=== PATIENT | female | born 1990 | race Caucasian/White ===

== ENCOUNTER → 2016-09-15 | Outpatient (CLI) | payer BC ==
--- NOTE | 2016-09-15 11:01 | Diagnostic Imaging Report ---
INDICATION: Followup size and dates. COMPARISON: None. DISCUSSION: Transabdominal sonographic evaluation of the gravid uterus was performed. Single live intrauterine at 35 weeks 6 days by today's sonographic measurements. Estimated gestational age by the report from an outside ultrasound which is not available for review was given at 32 weeks 5 days. Recommend clinical correlation for above date discrepancy. EDC by today's ultrasound is 10/14/2016. EDC by the outside report of 11/05/2016. presentation is cephalic. Normal amniotic fluid index measuring 7.9 cm. Grade 2 placenta is located anteriorly with no placenta previa. heart rate measures 135 beats per minute. Biparietal diameter measures 9.0 cm. Head circumference measures 33.4 cm. Abdominal circumference measures 29.8 cm. Femur length measures 6.7 cm. No abnormal adnexal mass or fluid. Estimated weight is 2501 grams. IMPRESSION: 1. Single live intrauterine at 35 weeks 6 days by today's sonographic measurements. Expected gestational age by the first reported outside ultrasound is 32 weeks 5 days. Recommend clinical correlation. Dictated by: Dictated on workstation # [id number]
== END ==
LOC: RAD 09:52
PROVIDERS: ATTEND Obstetrics & Gynecology
DX: O26.843 Uterine size-date discrepancy, third trimester (principal); Z3A.35 35 weeks gestation of pregnancy
CPT/HCPCS: 76805

== ENCOUNTER → 2016-10-18 | Outpatient (CLI) | payer BC ==
--- NOTE | 2016-10-18 14:21 | Diagnostic Imaging Report ---
INDICATION: Uterine size-date discrepancy. TECHNIQUE: Multiple real-time grayscale images were obtained over the gravid uterus. COMPARISON: 09/15/2016. FINDINGS: Single live intrauterine at 39 weeks 2 days by today's sonographic measurements. Expected gestational age by first ultrasound is 37 weeks 3 days with a 2 week date discrepancy. Normal amniotic fluid index. Grade 2 placenta is located anteriorly with no placenta previa. heart rate measures 138 beats per minute. No acute abnormality identified. Biometrical measurements are as follows: Biparietal 9.9 cm, age 40 weeks 6 days. Head circumference 36.2 cm, age out of range weeks out of range days. Abdominal circumference 36.7 cm, age 40 weeks 5 days. Femur length 7.0 cm, age 36 weeks 0 days. Sonographic estimate age: 39 weeks 2 days. Sonographic estimated date of delivery: 10/23/16. Estimated Weight: 3936 gm (+/- 575 gm). LMP percentile: 98%. heart rate: 138 beats per minute. number: 1 of 1. IMPRESSION: Single live intrauterine at 39 weeks 2 days by today's sonographic measurements. Gestational age by the first ultrasound is 37 weeks 3 days. Dictated by: Dictated on workstation # [id number]
== END ==
LOC: RAD 12:59
PROVIDERS: ATTEND Obstetrics & Gynecology
DX: O26.843 Uterine size-date discrepancy, third trimester (principal); Z3A.39 39 weeks gestation of pregnancy
CPT/HCPCS: 76816

== ENCOUNTER 2016-10-25 15:43 | Inpatient (IN) | payer BC ==
[~2016-10-25] VITALS: Ht 160 cm; Wt 91.6 kg
[2016-10-25] VITALS (11 sets, daily range): BP systolic 104–134; BP diastolic 58–92
[2016-10-25] MEDS ORDERED: NS IV 1000 ML 1,000 ML ONE (16:43)
[2016-10-25] MEDS: NS IV 1000 ML 1,000 ML IV SCH (16:48)
[2016-10-25] MEDS ORDERED: PREN-53 PO (16:53)
[2016-10-25] MEDS ORDERED: ceFAZolin 2 GM/50 ML NS 50 ML IV SCH (17:08)
[2016-10-25] MEDS ORDERED: MISOPROSTOL 100 MCG (CYTOTEC) TAB ONE (17:11)
[2016-10-25] MEDS ORDERED: MINERAL OIL CONCENTRATE 99.9% 15 ML UDC TOP PRN (17:15)
[2016-10-25] MEDS: MISOPROSTOL 100 MCG (CYTOTEC) TAB PV SCH ×2 (17:17→21:06)
[2016-10-25 17:20] LABS: BASOPHILS % (AUTO) 0 % (0-10); EOSINOPHILS # (AUTO) 0.1 10^3/uL (0.0-0.3); EOSINOPHILS % (AUTO) 1 % (0-10); LYMPHOCYTES # (AUTO) 1.8 X 10^3 (1.0-4.0); LYMPHOCYTES % (AUTO) 20 % (12-44); MEAN CORPUSCULAR HEMOGLOBIN 26 PG (25-34); MEAN CORPUSCULAR HGB CONC 31 G/DL (32-36); MEAN CORPUSCULAR VOLUME 81 FL (80-99); MEAN PLATELET VOLUME 11.1 FL (7.4-10.4); MONOCYTES % (AUTO) 11 % (0-12); NEUTROPHILS # (AUTO) 5.9 X 10^3 (1.8-7.8); NEUTROPHILS % (AUTO) 68 % (42-75); PLATELET COUNT 257 10^3/uL (130-400); RED BLOOD COUNT 3.96 10^6/uL (4.35-5.85); RED CELL DISTRIBUTION WIDTH 15.1 % (10.0-14.5); WHITE BLOOD COUNT 8.7 10^3/uL (4.3-11.0)
[2016-10-25 17:29] LABS: ALANINE AMINOTRANSFERASE 18 U/L (0-55); ALBUMIN 3.2 G/DL (3.2-4.5); ANION GAP 9 MMOL/L (5-14); ASPARTATE AMINO TRANSFERASE 22 U/L (5-34); BILIRUBIN,TOTAL 0.3 MG/DL (0.1-1.0); BLOOD UREA NITROGEN 8 MG/DL (7-18); BUN/CREATININE RATIO 13; CALCIUM 8.8 MG/DL (8.5-10.1); CARBON DIOXIDE 21 MMOL/L (21-32); CHLORIDE 108 MMOL/L (98-107); CREATININE SERUM 0.61 MG/DL (0.60-1.30); GFR ESTIMATED > 60; GLUCOSE 92 MG/DL (70-105); POTASSIUM 3.8 MMOL/L (3.6-5.0); SODIUM 138 MMOL/L (135-145); URIC ACID 4.1 MG/DL (2.6-7.2)
[2016-10-25 17:47] LABS: LACTATE DEHYDROGENASE 221 U/L (125-220)
--- NOTE | 2016-10-25 18:26 | History & Physical-OB ---
OB - Chief Complaint & HPI Date Date of Admission: Date of Admission: Oct 25, 2016 at 15:43 Chief Complaint/History OB-Reason for Admission/Chief: Induction of Labor Hx : 1 Hx Para: 0 Gestational Age in Weeks: 38 Gestational Age in Days: 3 Indication for induction: medical complication (gest HTN) Other reason for admission: 26 y/o G1 @ 38w3d here for IOL for gest HTN relatively uncomplicated - had possible exposure to zika (negative testing), LGA baby (4kg at 37w3d) - negative GDM screening BP in office 142 systolic today, and diastolic BP 92 here upon arrival (> 4 hours apart) Has had h/a (not currently) and rapid increase in swelling Otherwise, fetus active, no LOF VB CTX. History of Labs O+ Antibody neg RI RPR NR Hep B neg Hep C neg HIV neg GC/CT neg/neg GBS+ Allergies and Home Medications Allergies Coded Allergies: morphine (Verified Allergy, Mild, HIVES, 10/25/16) Penicillins (Verified Allergy, Unknown, 10/25/16) Happened as a child Home Medications Qif254/Iron Fumarate/FA/Dss 1 Each Tablet, 1 EACH PO DAILY, (Reported) OB - History Hx of Present Care: Yes Ultrasounds: Abnormal US findings (LGA confirmed with serial GS) Obstetrical Complications: None, Other Information Induced Hypertension: Yes (gest HTN) Maternal Gestational Diabetes: No Hemorrhage: No Obstetrical History Hx : 1 Patient Past Medical History see above Social History/Family History HIV/AIDS: No Recent Infectious Disease Expo: No Sexually Transmitted Disease: No Alcohol Use: Denies Use Recreational Drug Use: No Smoking Cessation: Never smoker Immunizations Hepatitis A: No Hepatitis B: No Tetanus Booster (TDap): Less than 5yrs Rubella: immune RPR/VDRL: Negative GBS Status: Positive HBsAG: Negative OB - Admission Exam Physical Exam Time Seen by Provider: 18:00 Vitals: per groover and striper operator HEENT: NCAT Heart: Rhythm Normal Abdomen: Gravid Extremities: Edema (2+ pitting edema bilat) Reflexes: Normal Cervical Dilatation: 1cm Effacement: 50% Station: Ballotable Membranes: Intact Heart Rate: 140's Accelerations: Accelerations Present Decelerations: No Decelerations Short Term Variability: Present Box Order Person Variability: Average (6-25) Contractions on Admission: < 5 Minutes Apart Quiñones Scoring Tool (Modified) Effacement (%): 31-51% (1) Descent/Station: -3 (0) Cervix Consistency: Soft (2) Cervix Position: Middle/Mid-Position (1) Subtract 1 point for: Nulliparity (-1) Quiñones Score: 3 Labs Laboratory Tests Test 10/25/16 16:30 Range/Units White Blood Count 8.7 4.3-11.0 10^3/uL Red Blood Count 3.96 L 4.35-5.85 10^6/uL Hemoglobin 10.1 L 11.5-16.0 G/DL Hematocrit 32 L 35-52 % Mean Corpuscular Volume 81 80-99 FL Mean Corpuscular Hemoglobin 26 25-34 PG Mean Corpuscular Hemoglobin Concent 31 L 32-36 G/DL Red Cell Distribution Width 15.1 H 10.0-14.5 % Platelet Count 257 130-400 10^3/uL Mean Platelet Volume 11.1 H 7.4-10.4 FL Neutrophils (%) (Auto) 68 42-75 % Lymphocytes (%) (Auto) 20 12-44 % Monocytes (%) (Auto) 11 0-12 % Eosinophils (%) (Auto) 1 0-10 % Basophils (%) (Auto) 0 0-10 % Neutrophils # (Auto) 5.9 1.8-7.8 X 10^3 Lymphocytes # (Auto) 1.8 1.0-4.0 X 10^3 Monocytes # (Auto) 1.0 0.0-1.0 X 10^3 Eosinophils # (Auto) 0.1 0.0-0.3 10^3/uL Basophils # (Auto) 0.0 0.0-0.1 10^3/uL Sodium Level 138 135-145 MMOL/L Potassium Level 3.8 3.6-5.0 MMOL/L Chloride Level 108 H 98-107 MMOL/L Carbon Dioxide Level 21 21-32 MMOL/L Anion Gap 9 5-14 MMOL/L Blood Urea Nitrogen 8 7-18 MG/DL Creatinine 0.61 0.60-1.30 MG/DL Estimat Glomerular Filtration Rate > 60 BUN/Creatinine Ratio 13 Glucose Level 92 70-105 MG/DL Uric Acid 4.1 2.6-7.2 MG/DL Calcium Level 8.8 8.5-10.1 MG/DL Total Bilirubin 0.3 0.1-1.0 MG/DL Aspartate Amino Transf (AST/SGOT) 22 5-34 U/L Alanine Aminotransferase (ALT/SGPT) 18 0-55 U/L Alkaline Phosphatase 202 H 40-136 U/L Lactate Dehydrogenase 221 H 125-220 U/L Total Protein 6.0 L 6.4-8.2 G/DL Albumin 3.2 3.2-4.5 G/DL OB - Assessment/Plan/Diagnosis Plan Other Plan 26 y/o G1 @ 38w3d with gestational HTN, GBS+ IOL - cervical ripening with cytotec, SLIV Ancef for GBS ppx HELLP labs with no evidence of severe disease, negative proteinuria. No indication for mag sulfate at this time but will monitor for si/sx severe disease. JEROD MELARA MD Oct 25, 2016 18:26
[2016-10-25] MEDS ORDERED: CATHETER FLUSH 10 ML SYR IV SCH (22:00)
[2016-10-25] MEDS: ceFAZolin INJECTION 1,000 MG in NS (IVPB) 50 ML IV SCH (22:42)
[2016-10-26] VITALS (66 sets, daily range): BP systolic 105–142; BP diastolic 53–88
[2016-10-26] MEDS: MISOPROSTOL 100 MCG (CYTOTEC) TAB PV SCH (00:50)
[2016-10-26] MEDS: ceFAZolin INJECTION 1,000 MG in NS (IVPB) 50 ML IV SCH ×4 (02:20→15:05)
[2016-10-26] MEDS ORDERED: OXYTOCIN/NORMAL SALINE 500 ML IV ONE (05:22)
[2016-10-26] MEDS ORDERED: OXYTOCIN/NORMAL SALINE 500 ML IV SCH (05:42)
--- NOTE | 2016-10-26 08:24 | Progress Note-Standard ---
Standard Progress Note Progress Notes/Assess & Plan Date Seen 10/26/16 Time Seen by Provider: 07:45 Assess & Plan/Chief Complaint Labor Update Note - HD#2, 38w4d Denies complaints, some bloody show overnight, received 3 total doses cytotec, now on pit No severe pre-e symptoms Vital Sign - Last 12Hours 10/25/16 10/25/16 10/25/16 10/25/16 20:41 21:10 21:41 22:10 Temp 98.3 Pulse 88 90 88 73 Resp 18 18 18 18 B/P (MAP) 129/80 126/83 125/82 104/59 10/25/16 10/25/16 10/26/16 10/26/16 22:40 23:10 00:50 01:22 Pulse 88 84 70 80 Resp 18 18 18 18 B/P (MAP) 124/71 121/77 123/83 117/71 10/26/16 10/26/16 10/26/16 10/26/16 01:55 02:23 02:53 03:23 Temp 97.4 Pulse 75 77 93 88 Resp 18 18 18 18 B/P (MAP) 109/60 127/83 128/86 115/78 10/26/16 10/26/16 10/26/16 10/26/16 04:23 04:53 05:24 05:50 Temp 97.2 Pulse 86 92 82 90 Resp 18 18 18 18 B/P (MAP) 121/80 124/83 135/78 130/77 10/26/16 10/26/16 10/26/16 10/26/16 06:05 06:20 06:36 06:50 Pulse 85 75 77 75 Resp 18 18 18 18 B/P (MAP) 126/78 123/81 123/88 126/83 10/26/16 10/26/16 10/26/16 07:05 07:20 07:35 Temp 98.1 Pulse 69 72 68 Resp 18 18 18 B/P (MAP) 124/76 125/78 121/83 Intake and Output 10/26/16 00:00 Intake Total 300 ml Balance 300 ml SVE /-2, AROM with clear fluid FHT 125/mod chato/reactive no decels CTX 07/29 A/P: 26 y/o G1 @ 38w4d with IOL for gest HTN LGA fetus GBS+ S/p cytotec x 3 doses, continue pitocin, AROM with clear fluid Have discussed risks of shoulder dystocia at length given LGA fetus ASVD Ancef for gbs ppx Labs Laboratory Tests 10/25/16 16:30 JEROD MELARA MD Oct 26, 2016 08:24
[2016-10-26] MEDS ORDERED: LACTATED RINGERS 1,000 ML IV ONE ×2 (08:43→10:28)
[2016-10-26] MEDS ORDERED: SUFENTA 0.6MCG/ML BUPIVA 0.125 100 ML ONE (08:43)
[2016-10-26] MEDS ORDERED: fentaNYL INJECTION 100 MCG/2 ML AMP ONE ×2 (09:51→17:09)
[2016-10-26] MEDS ORDERED: ONDANSETRON 4 MG/2 ML (SDV) Z0FRAN ONE (10:21)
[2016-10-26] MEDS ORDERED: diphenhydrAMINE 50 MG/ML INJ (BENADRYL) IV PRN (10:30)
[2016-10-26] MEDS ORDERED: METOCLOPRAMIDE INJ 10 MG/2 ML (REGLAN) IV PRN (10:30)
[2016-10-26] MEDS ORDERED: ONDANSETRON 4 MG/2 ML (SDV) Z0FRAN IV PRN (10:30)
[2016-10-26] MEDS ORDERED: NALOXONE 0.4 MG/ML 1 ML (NARCAN) VIAL IV PRN ×2 (10:30)
[2016-10-26] MEDS ORDERED: EPIDURAL (SUFENTA 0.6MCG/ML BUPIVA 0.125%) 100 ML BAG EPI PRN (10:30)
[2016-10-26] MEDS: NS IV 1000 ML 1,000 ML IV SCH (13:20)
[2016-10-26] MEDS ORDERED: LACTATED RINGERS 1,000 ML IV PRN ×2 (16:48)
--- NOTE | 2016-10-26 16:54 | Progress Note-Standard ---
Standard Progress Note Progress Notes/Assess & Plan Date Seen 10/26/16 Time Seen by Provider: 16:40 Assess & Plan/Chief Complaint Labor Update Note - HD#2, 38w4d Denies complaints, comfortable with epidural VS - Last 72 Hours, by Label 10/25/16 10/25/16 10/25/16 10/25/16 15:58 16:50 18:40 19:10 Temp 98.9 Pulse 103 98 85 93 Resp 18 18 18 18 B/P (MAP) 134/92 131/79 111/64 119/58 10/25/16 10/25/16 10/25/16 10/25/16 20:10 20:41 21:10 21:41 Temp 98.3 Pulse 90 88 90 88 Resp 18 18 18 18 B/P (MAP) 125/81 129/80 126/83 125/82 10/25/16 10/25/16 10/25/16 10/26/16 22:10 22:40 23:10 00:50 Pulse 73 88 84 70 Resp 18 18 18 18 B/P (MAP) 104/59 124/71 121/77 123/83 10/26/16 10/26/16 10/26/16 10/26/16 01:22 01:55 02:23 02:53 Temp 97.4 Pulse 80 75 77 93 Resp 18 18 18 18 B/P (MAP) 117/71 109/60 127/83 128/86 10/26/16 10/26/16 10/26/16 10/26/16 03:23 04:23 04:53 05:24 Temp 97.2 Pulse 88 86 92 82 Resp 18 18 18 18 B/P (MAP) 115/78 121/80 124/83 135/78 10/26/16 10/26/16 10/26/16 10/26/16 05:50 06:05 06:20 06:36 Pulse 90 85 75 77 Resp 18 18 18 18 B/P (MAP) 130/77 126/78 123/81 123/88 10/26/16 10/26/16 10/26/16 10/26/16 06:50 07:05 07:20 07:35 Temp 98.1 Pulse 75 69 72 68 Resp 18 18 18 18 B/P (MAP) 126/83 124/76 125/78 121/83 6/7/17 6/7/17 6/7/17 6/7/17 07:50 08:05 08:20 08:35 Pulse 82 68 76 73 Resp 18 18 18 18 B/P (MAP) 139/82 130/78 124/78 127/83 6/7/17 6/7/17 6/7/17 6/7/17 08:50 09:05 09:20 09:35 Pulse 78 75 74 74 Resp 18 18 18 18 B/P (MAP) 138/86 133/86 141/84 137/84 6/7/17 6/7/17 6/7/17 6/7/17 09:50 10:00 10:05 10:10 Pulse 82 81 96 93 Resp 18 18 18 18 B/P (MAP) 142/82 141/82 135/81 128/79 Pulse Ox 100 100 100 6/7/17 6/7/17 6/7/17 6/7/17 10:15 10:20 10:25 10:30 Temp 98.6 Pulse 91 102 64 64 Resp 18 18 18 18 B/P (MAP) 128/80 128/78 105/53 105/53 Pulse Ox 100 100 100 100 6/7/17 6/7/17 6/7/17 6/7/17 10:31 10:35 10:40 10:45 Pulse 76 89 86 92 Resp 18 18 18 18 B/P (MAP) 106/57 128/73 121/74 128/79 Pulse Ox 100 100 100 100 6/7/17 6/7/17 6/7/17 6/7/17 11:00 11:15 11:30 11:45 Pulse 85 83 86 80 Resp 18 18 18 18 B/P (MAP) 131/74 126/79 130/84 129/75 Pulse Ox 100 100 100 100 6/7/17 6/7/17 6/7/17 6/7/17 12:00 12:15 12:30 12:45 Pulse 95 86 95 97 Resp 18 18 18 18 B/P (MAP) 124/75 119/78 124/75 127/79 Pulse Ox 100 100 100 100 6/7/17 6/7/17 6/7/17 6/7/17 13:00 13:15 13:30 13:45 Pulse 90 88 88 91 Resp 18 18 18 18 B/P (MAP) 120/76 124/71 118/72 119/76 Pulse Ox 100 100 100 100 10/26/16 10/26/16 10/26/16 10/26/16 14:00 14:15 14:30 14:45 Pulse 82 105 105 95 Resp 18 18 18 18 B/P (MAP) 129/76 129/82 129/82 127/72 Pulse Ox 100 100 100 100 10/26/16 15:00 Pulse 102 Resp 18 B/P (MAP) 127/77 Pulse Ox 100 SVE /-2 FHT 125/mod chato/reactive no decels CTX 07/29 A/P: 26 y/o G1 @ 38w4d with IOL for gest HTN LGA fetus GBS+ Arrest of descent, suspected CPD S/p cytotec x 3 doses, pitocin. No descent since AROM. Cervix with minimal change from 3-4cm from 0700 to now (10 hours). I suspect CPD. I discussed with Ada and her family that I recommend delivery at this point, and she is agreeable. We discussed risks including bleeding, infection, damage to surrounding structures of mother and infant. She is in agreement. Marcia-op ancef and azithromycin. To OR for CD. Labs Laboratory Tests 10/25/16 16:30 JEROD MELARA MD Oct 26, 2016 16:54
--- NOTE | 2016-10-26 16:58 | Cesarean Section Operative ---
Procedure Procedure Note Date of Procedure: 10/26/16 Pre-operative Diagnosis: Ada Reid is a 26 y/o G1 @ 38w4d with IOL for gestational hypertension, arrest of labor and descent, suspected cephalopelvic disproportion, GBS+ Post-operative Diagnosis: Same Procedure: Primary low transverse section Physician: Saavnah Ayala MD Plastics Fabricator: Debbie Bustos APRN who was vital to the case for retraction of essential neurovascular structures Estimated blood loss: 600 mL Specimens: Cord blood to lab, placenta to pathology Disposition: Stable to recovery Findings: Viable male infant, Apgars 8/9, weight 4jw50py, intact placenta, 3vc, normal appearing uterus, tubes, and ovaries. Indications: Ada Reid is a 26 y/o G1 @ 38w4d with IOL for gestational HTN. She was admitted and HELLP labs were obtained and normal. She had three doses of cytotec per vagina for cervical ripening. She then received pitocin for augmentation and had AROM of clear fluid. She received ancef for GBS prophylaxis. An epidural was placed for analgesia. She made minimal progress, from 3 to 4 cm throughout ten hours. More concerning was lack of descent of the presenting part. She was counseled on need for abdominal delivery and consented to this. Marcia-operative ancef and azithromycin were administered. Procedure Details: The patient was seen in pre-op and the procedure was discussed with the patient in full, including the risks, benefits, and alternatives. All questions were answered. The patient was taken to the operating room and a time out was performed, verifying patient and procedure. After spinal anesthesia was placed by our anesthesia colleagues, the patient was placed in the dorsal supine with leftward tilt for uterine displacement. Her abdomen was then prepped and draped in the typical sterile fashion. A Pfannenstiel skin incision was made using a scalpel and carried down through the underlying fascia. The fascia was incised in the midline and tented up using Nadege clamps. On both the inferior and superior fascia side the rectus muscle was dissected off bluntly and sharply using Palma scissors. The peritoneum was identified and entered bluntly in the midline. This was then stretched laterally using manual strength. After entering the abdominal cavity and confirming lack of intraperitoneal adhesions, a large Juan Jose retractor was placed and the lower uterine segment was visualized. A bladder flap was created with the use of Metzenbaum scissors. A scalpel was utilized to make a low transverse uterine incision. The 's head was grasped and brought to the level of the incision. Fundal pressure was applied and infant was delivered without difficulty. Mouth and nares were suctioned with bulb suction. After the umbilical cord was clamped and cut, the was handed off to the pediatric staff. A sample of cord blood was then obtained. The placenta was delivered intact via uterine massage. The uterus was cleared of all clots and debris. The uterine incision was closed using 0 Vicryl in a running locked fashion. A second imbricated layer was placed using 0 Vicryl in a running fashion as well. Again the hysterotomy site was examined and hemostasis was observed. The bilateral tubes and ovaries appeared normal. The abdominal gutters were cleared of all clots and debris. A final check of the uterine incision showed it to be hemostatic. Intercede was placed on the hysterotomy. The peritoneum was closed using 3-0 Vicryl in a running fashion. The fascia was closed with 0 Vicryl in a running fashion. The subcutaneous space was hemostatic, and irrigated. The subcutaneous space was closed with 3-0 Vicryl in several single interrupted stitches. The skin was then closed using 4- 0 Monocryl in a running subcuticular fashion. The skin edges were reapproximated together and were hemostatic. A pressure dressing was applied. All sponge, lap and needle counts were correct at the end of the procedure per nursing. Vitals - Labs Vital Signs - I&O Vital Signs Date Time Temp Pulse Resp B/P (MAP) Pulse Ox O2 Delivery O2 Flow Rate FiO2 10/26/16 15:00 102 18 127/77 100 10/26/16 14:45 95 18 127/72 100 10/26/16 14:30 105 18 129/82 100 10/26/16 14:15 105 18 129/82 100 10/26/16 14:00 82 18 129/76 100 10/26/16 13:45 91 18 119/76 100 10/26/16 13:30 88 18 118/72 100 10/26/16 13:15 88 18 124/71 100 10/26/16 13:00 90 18 120/76 100 10/26/16 12:45 97 18 127/79 100 10/26/16 12:30 95 18 124/75 100 6/7/17 12:15 86 18 119/78 100 6/7/17 12:00 95 18 124/75 100 6/7/17 11:45 80 18 129/75 100 6/7/17 11:30 86 18 130/84 100 6/7/17 11:15 83 18 126/79 100 6/7/17 11:00 85 18 131/74 100 6/7/17 10:45 92 18 128/79 100 6/7/17 10:40 86 18 121/74 100 6/7/17 10:35 89 18 128/73 100 6/7/17 10:31 76 18 106/57 100 6/7/17 10:30 64 18 105/53 100 6/7/17 10:25 64 18 105/53 100 6/7/17 10:20 98.6 102 18 128/78 100 6/7/17 10:15 91 18 128/80 100 /7/17 10:10 93 18 128/79 100 /7/17 10:05 96 18 135/81 100 /7/17 10:00 81 18 141/82 100 6/7/17 09:50 82 18 142/82 /7/17 09:35 74 18 137/84 6/7/17 09:20 74 18 141/84 /7/17 09:05 75 18 133/86 6/7/17 08:50 78 18 138/86 6/7/17 08:35 73 18 127/83 6/7/17 08:20 76 18 124/78 6/7/17 08:05 68 18 130/78 6/7/17 07:50 82 18 139/82 6/7/17 07:35 98.1 68 18 121/83 6/7/17 07:20 72 18 125/78 6/7/17 07:05 69 18 124/76 6/7/17 06:50 75 18 126/83 6/7/17 06:36 77 18 123/88 6/7/17 06:20 75 18 123/81 6/7/17 06:05 85 18 126/78 6/7/17 05:50 90 18 130/77 6/7/17 05:24 97.2 82 18 135/78 6/7/17 04:53 92 18 124/83 6/7/17 04:23 86 18 121/80 6/7/17 03:23 88 18 115/78 10/26/16 02:53 93 18 128/86 10/26/16 02:23 97.4 77 18 127/83 10/26/16 01:55 75 18 109/60 10/26/16 01:22 80 18 117/71 10/26/16 00:50 70 18 123/83 10/25/16 23:10 84 18 121/77 10/25/16 22:40 88 18 124/71 10/25/16 22:10 73 18 104/59 10/25/16 21:41 88 18 125/82 10/25/16 21:10 98.3 90 18 126/83 10/25/16 20:41 88 18 129/80 10/25/16 20:10 90 18 125/81 10/25/16 19:10 93 18 119/58 10/25/16 18:40 85 18 111/64 I & O 10/26/16 07:00 Intake Total 300 ml Balance 300 ml SAVANAH AYALA MD Oct 26, 2016 16:58
[2016-10-26] MEDS ORDERED: ceFAZolin 2 GM/50 ML NS 50 ML IV ONE (17:00)
[2016-10-26] MEDS ORDERED: METOCLOPRAMIDE INJ 10 MG/2 ML (REGLAN) IV ONE (17:00)
[2016-10-26] MEDS ORDERED: CITRIC ACID/SOB CIT (BICITRA) 30 ML UDC PO ONE (17:00)
[2016-10-26] MEDS ORDERED: AZITHROMYCIN IV ADD-VANTAGE 500 MG in SODIUM CHLORIDE (ADD-VANTAGE) 250 ML IV NR (17:00)
[2016-10-26] MEDS ORDERED: AZITHROMYCIN INJECTION 500 MG in NS (IVPB) 250 ML IV NR (17:00)
[2016-10-26] MEDS ORDERED: FAMOTIDINE 20MG/2ML IV (PEPCID) IV ONE (17:00)
[2016-10-26] MEDS ORDERED: OXYC-197 PO (17:01)
[2016-10-26] MEDS ORDERED: DOCU-143 PO (17:01)
[2016-10-26] MEDS ORDERED: IBUP-1773 PO (17:01)
[2016-10-26] MEDS ORDERED: FERR-74 PO (17:03)
--- NOTE | 2016-10-26 17:05 | Discharge Inst-Women's Service ---
Discharge Inst-Women's Serv Depart Medication/Instructions New, Converted or Re-Newed RX: RX on Chart Final Diagnosis Gestational hypertension, suspected cephalopelvic disproportion, failed induction of labor, arrest of labor and descent, primary CD Consults/Follow Up Additional Follow Up: Yes Orders/Referrals 7-[address] Ayala for BP and incision check Activity Driving Instructions: No Driving for 1 Week (or while taking narcotic pain medications) NO SMOKING: NO SMOKING Nothing Inside Vagina: No Douching, No [place], No Tampons Other Activity No strenuous activity No heavy lifting > 10 lb Diet Discharge Diet: No Restrictions Symptoms to Report to : Bleeding Excessive, Pain Increased, Fever Over 101 Degrees F, Pain/Pressure in Chest, Vaginal Bleeding Increase, Dizziness/Fainting , Nausea/Vomiting, Shortness of Breath For Any Problems or Questions: Contact Your Physician, Go to Emergency Room Skin/Wound Care Infection Signs and Symptoms: Increased Redness, Foul Odor of Wound, Increased Drainage Operative Area Clean and Dry: Keep Incision Clean/Dry Stitches/[place]/Dermabond: Dermabond, Care of Stitches Bathing Instructions: JEROD Garcia MD Oct 26, 2016 17:05
[2016-10-26] MEDS ORDERED: BUPIVACAINE 0.5% 30 ML (SENSORCAINE) VIAL ONE (17:09)
[2016-10-26] MEDS ORDERED: OXYTOCIN/NORMAL SALINE 1,000 ML IV ONE (17:22)
[2016-10-26] MEDS ORDERED: KETOROLAC 30 MG/ML VIAL ONE (19:28)
[2016-10-26] MEDS: KETOROLAC 30 MG/ML VIAL IVP SCH (19:35)
[2016-10-26] MEDS ORDERED: ONDANSETRON 4 MG/2 ML (SDV) Z0FRAN IVP PRN (19:45)
[2016-10-26] MEDS ORDERED: HYDROmorphone (DILAUDID) 2 MG/ML VIAL IVP PRN (19:45)
[2016-10-26] MEDS: OXYTOCIN/NORMAL SALINE 500 ML IV SCH (20:51)
[2016-10-26] MEDS: CATHETER FLUSH 10 ML SYR IV SCH (22:00)
[2016-10-26] MEDS: oxyCODONE/APAP 5/325MG (PERCOCET 5) TABLET PO PRN (23:59)
[2016-10-27] MEDS: DOCUSATE SODIUM 100 MG (COLACE) CAP PO SCH ×3 (00:39→20:42)
[2016-10-27] MEDS: OXYTOCIN/NORMAL SALINE 500 ML IV SCH (00:40)
[2016-10-27] MEDS: KETOROLAC 30 MG/ML VIAL IVP SCH ×3 (02:28→14:33)
[2016-10-27 03:42] VITALS: BP 125/81
[2016-10-27] MEDS: CATHETER FLUSH 10 ML SYR IV SCH ×2 (06:11→22:00)
[2016-10-27 06:58] LABS: BASOPHILS % (AUTO) 0 % (0-10); EOSINOPHILS # (AUTO) 0.1 10^3/uL (0.0-0.3); EOSINOPHILS % (AUTO) 0 % (0-10); LYMPHOCYTES # (AUTO) 1.9 X 10^3 (1.0-4.0); LYMPHOCYTES % (AUTO) 16 % (12-44); MEAN CORPUSCULAR HEMOGLOBIN 25 PG (25-34); MEAN CORPUSCULAR HGB CONC 31 G/DL (32-36); MEAN CORPUSCULAR VOLUME 82 FL (80-99); MEAN PLATELET VOLUME 10.5 FL (7.4-10.4); MONOCYTES # (AUTO) 1.4 X 10^3 (0.0-1.0); MONOCYTES % (AUTO) 12 % (0-12); NEUTROPHILS # (AUTO) 8.7 X 10^3 (1.8-7.8); NEUTROPHILS % (AUTO) 72 % (42-75); PLATELET COUNT 225 10^3/uL (130-400); RED BLOOD COUNT 3.26 10^6/uL (4.35-5.85); RED CELL DISTRIBUTION WIDTH 15.2 % (10.0-14.5); WHITE BLOOD COUNT 12.1 10^3/uL (4.3-11.0)
[2016-10-27] MEDS ORDERED: FERROUS SULF 325 MG (IRON) TAB PO SCH (07:00)
[2016-10-27 08:05] VITALS: BP 124/86
--- NOTE | 2016-10-27 09:23 | Progress Note-Standard ---
Standard Progress Note Progress Notes/Assess & Plan Date Seen by Provider: Oct 27, 2016 Time Seen by Provider: 09:22 Progress/Assessment & Plan Patient doing well POD 1 PLTCS. Ambulating and voiding freely. Tolerating regular diet, lochia light. No concerns voiced by the patient. Vital Sign - Last 24 Hours 10/26/16 617 6//17 617 09:35 09:50 10:00 10:05 Pulse 74 82 81 96 Resp 18 18 18 18 B/P (MAP) 137/84 142/82 141/82 135/81 Pulse Ox 100 100 /7/17 6/7/17 6/7/17 6//17 10:10 10:15 10:20 10:25 Temp 98.6 Pulse 93 91 102 64 Resp 18 18 18 18 B/P (MAP) 128/79 128/80 128/78 105/53 Pulse Ox 100 100 100 100 6/7/17 6//17 6/7/17 6/12/05 10:30 10:31 10:35 10:40 Pulse 64 76 89 86 Resp 18 18 18 18 B/P (MAP) 105/53 106/57 128/73 121/74 Pulse Ox 100 100 100 100 /7/17 6//17 6/7/17 6//17 10:45 11:00 11:15 11:30 Pulse 92 85 83 86 Resp 18 18 18 18 B/P (MAP) 128/79 131/74 126/79 130/84 Pulse Ox 100 100 100 100 10/26/17 6//17 6/7/17 6//17 11:45 12:00 12:15 12:30 Pulse 80 95 86 95 Resp 18 18 18 18 B/P (MAP) 129/75 124/75 119/78 124/75 Pulse Ox 100 100 100 100 /7/17 6//17 6/7/17 6//17 12:45 13:00 13:15 13:30 Pulse 97 90 88 88 Resp 18 18 18 18 B/P (MAP) 127/79 120/76 124/71 118/72 Pulse Ox 100 100 100 100 /7/17 6//17 6//17 617 13:45 14:00 14:15 14:30 Pulse 91 82 105 105 Resp 18 18 18 18 B/P (MAP) 119/76 129/76 129/82 129/82 Pulse Ox 100 100 100 100 10/26/16 10/26/16 10/26/16 10/26/16 14:45 15:00 15:15 15:30 Pulse 95 102 103 96 Resp 18 18 18 18 B/P (MAP) 127/72 127/77 125/76 131/69 Pulse Ox 100 100 100 100 10/26/16 10/26/16 10/26/16 10/26/16 15:45 16:00 16:15 16:30 Pulse 93 103 99 90 Resp 18 18 18 18 B/P (MAP) 130/70 128/80 125/84 131/85 Pulse Ox 100 100 100 100 10/26/16 10/26/16 10/26/16 10/26/16 16:45 17:00 17:15 17:30 Pulse 94 106 93 100 Resp 18 20 20 20 B/P (MAP) 133/87 137/76 126/66 127/72 Pulse Ox 100 10/26/16 10/26/16 10/27/16 10/27/16 19:35 23:59 03:42 08:05 Temp 98.8 99.0 98.2 98.0 Pulse 100 99 109 100 Resp 18 18 18 18 B/P (MAP) 122/74 124/79 125/81 124/86 Pulse Ox 99 97 98 99 Intake and Output 10/26/16 10/26/16 10/27/16 15:00 23:00 07:00 Intake Total 2050 ml 800 ml 1900 ml Output Total 325 ml 500 ml Balance 2050 ml 475 ml 1400 ml Laboratory Tests 10/27/16 06:21: White Blood Count 12.1H, Red Blood Count 3.26L, Hemoglobin 8.2L, Hematocrit 27L , Mean Corpuscular Volume 82, Mean Corpuscular Hemoglobin 25, Mean Corpuscular Hemoglobin Concent 31L, Red Cell Distribution Width 15.2H, Platelet Count 225, Mean Platelet Volume 10.5H, Neutrophils (%) (Auto) 72, Lymphocytes (%) (Auto) 16 , Monocytes (%) (Auto) 12, Eosinophils (%) (Auto) 0, Basophils (%) (Auto) 0, Neutrophils # (Auto) 8.7H, Lymphocytes # (Auto) 1.9, Monocytes # (Auto) 1.4H, Eosinophils # (Auto) 0.1, Basophils # (Auto) 0.0 Incision: c/d/i Diagnosis: POD 1 PLTCS Acute blood loss anemia P: Continue routine po care Replace iron KELVIN BECERRA DO Oct 27, 2016 9:23 am
[2016-10-27 12:25] VITALS: BP 124/85
[2016-10-27] MEDS: ENOXAPARIN 40 MG/0.4 ML (LOVENOX) SYR SC SCH (12:25)
[2016-10-27] MEDS: oxyCODONE/APAP 5/325MG (PERCOCET 5) TABLET PO PRN (12:25)
--- NOTE | 2016-10-27 13:50 | Anesthesia-Regional Post-Op ---
Regional Patient Condition Mental Status: Alert, Oriented x3 Circulation: Same as Pre-Op Headache: Absent Sensation: Full Recovery Motor Block: Absent Post Op Complications Complications None Follow Up Care/Instructions Patient Instructions None needed. Anesthesia/Patient Condition Patient is doing well, no complaints, stable vital signs, no apparent adverse anesthesia problems. No complications reported per nursing. NAKIA NUNEZ CRNA Oct 27, 2016 13:50
[2016-10-27 18:30] VITALS: BP 126/75
[2016-10-27] MEDS ORDERED: IBUPROFEN 800 MG (MOTRIN) TAB PO ONE (20:16)
[2016-10-27] MEDS: IBUPROFEN 800 MG (MOTRIN) TAB PO SCH (20:41)
[2016-10-27 21:20] VITALS: BP 122/83
[2016-10-28 01:44] VITALS: BP 120/78
[2016-10-28] MEDS: IBUPROFEN 800 MG (MOTRIN) TAB PO SCH ×2 (02:56→08:36)
[2016-10-28] MEDS: CATHETER FLUSH 10 ML SYR IV SCH ×2 (06:00→14:20)
[2016-10-28] MEDS ORDERED: FERROUS SULF 325 MG (IRON) TAB PO SCH (07:00)
[2016-10-28 08:00] VITALS: BP 131/82
[2016-10-28] MEDS: DOCUSATE SODIUM 100 MG (COLACE) CAP PO SCH (08:33)
[2016-10-28] MEDS: ENOXAPARIN 40 MG/0.4 ML (LOVENOX) SYR SC SCH (13:26)
[2016-10-28 14:00] VITALS: BP 136/74
--- NOTE | 2016-10-28 14:26 | Postpartum Progress Note ---
Post Op Post-operative Day #2 s/p PLTCS Will dc home today Subjective: Patient is without complaints. Ambulating, voiding after del castillo removed. Tolerating a regular diet without nausea or vomiting. Normal lochia. Pain is well controlled with oral pain medications. Passing flatus. Objective: Vital Sign - Last 12Hours 10/28/16 10/28/16 08:00 14:00 Temp 97.4 97.8 Pulse 102 98 Resp 18 18 B/P (MAP) 131/82 136/74 Pulse Ox 98 98 O2 Delivery Room Air Intake and Output 10/28/16 00:00 Intake Total 1500 ml Output Total 1400 ml Balance 100 ml Physical Exam: General - Alert and oriented, no apparent distress Abdomen - Soft, appropriately tender to palpation, non-distended, fundus firm at umbilicus Incision - clean, dry and intact; no erythema or induration, no drainage Extremities - no edema, negative Pavan's bilaterally Assessment: 1. post-operative day # 2, status post PLTCs. Recovering well, hemodynamically stable 2. Acute blood loss anemia - stable, iron replaced Plan: Routine post-operative care. Encourage breast feeding. Encourage ambulation. VTE prophylaxis: SCDs. Ferrous sulfate supplementation. Plan for discharge [today Vitals - Labs Vital Signs - I&O Vital Signs Date Time Temp Pulse Resp B/P (MAP) Pulse Ox O2 Delivery O2 Flow Rate FiO2 10/28/16 14:00 97.8 98 18 136/74 98 Room Air 10/28/16 08:00 97.4 102 18 131/82 98 10/28/16 01:44 97.2 87 17 120/78 100 10/27/16 21:20 97.9 90 18 122/83 100 10/27/16 18:30 98.0 99 18 126/75 99 I & O 10/28/16 07:00 Intake Total 2500 ml Output Total 1400 ml Balance 1100 ml JENNA VALDERRAMA DO Oct 28, 2016 14:26
== END 2016-10-28 16:15 | disposition home or self-care (01) | DRG 765 ==
LOC: LDRP 15:43 → WS 10-26 19:15
PROVIDERS: ADMIT Obstetrics & Gynecology; ATTEND Obstetrics & Gynecology
PROC: 3E0P7GC Introduction of Other Therapeutic Substance into Female Reproductive, Via Natural or Artificial Opening (ICD-10-PCS; 2016-10-25)
PROC: 3E033VJ Introduction of Other Hormone into Peripheral Vein, Percutaneous Approach (ICD-10-PCS; 2016-10-25)
PROC: 10D00Z1 Extraction of Products of Conception, Low, Open Approach (ICD-10-PCS; principal; 2016-10-26 17:33)
DX: O13.4 Gestational [pregnancy-induced] hypertension without significant proteinuria, complicating childbirth (principal); O99.824 Streptococcus B carrier state complicating childbirth; O33.9 Maternal care for disproportion, unspecified; O90.81 Anemia of the puerperium; D62 Acute posthemorrhagic anemia; Z3A.38 38 weeks gestation of pregnancy; Z37.0 Single live birth
CPT/HCPCS: 36415; 80053; 83615; 84550; 85025; 86850; 86900; 86901; 94664

== ENCOUNTER → 2018-05-24 | Outpatient (CLI) | payer BC ==
[~2018-05-24] MED LIST: DOCU-143 PO; FERR325T18 PO; IBUP-1773 PO; OXYC1TAB87 PO; PREN-53 PO
--- NOTE | 2018-05-24 15:52 | Diagnostic Imaging Report ---
INDICATION: survey. TECHNIQUE: Multiple real-time grayscale images were obtained over the gravid uterus. COMPARISON: None FINDINGS: There are no prior studies available for comparison. There is a single live fetus in cephalic presentation. heart motion is noted and a rate of 158 bpm is recorded. There are no abnormalities identified. The growth parameters are fairly uniform. The placenta is fundal and there is no previa. The amniotic fluid volume is within normal limits. The cervix is identified and measures 4.1 cm in length. Biometrical measurements are as follows: Biparietal 4.65 cm, age 20 weeks 1 days. Head circumference 17.62 cm, age 20 weeks 1 days. Abdominal circumference 15.3 cm, age 20 weeks 4 days. Femur length 2.99 cm, age 19 weeks 2 days. Sonographic estimate age: 20 weeks 1 days. Sonographic estimated date of delivery: 10/10/2018. Estimated Weight: 322 gm (+/- 47 gm). LMP percentile: 50%. heart rate: 158 beats per minute. number: 1 of 1. IMPRESSION: 1. There is a single live fetus of approximately 20 weeks 1 day gestation +/-1.5 weeks. The EDC is October 10, 2018. 2. There are no abnormalities identified. 3. The growth parameters are fairly uniform. Dictated by: Dictated on workstation # [id number]
== END ==
LOC: RAD 10:43
PROVIDERS: ATTEND Obstetrics & Gynecology
DX: Z36.89 Encounter for other specified antenatal screening (principal); Z3A.20 20 weeks gestation of pregnancy
CPT/HCPCS: 76805

== ENCOUNTER 2018-09-26 09:53 | Outpatient (CLI) | payer BC ==
[~2018-09-26] VITALS: Ht 160 cm; Wt 100.7 kg
[2018-09-26 10:00] VITALS: BP 131/82
== END 2018-09-26 10:15 | disposition home or self-care (01) ==
LOC: PREOP 09:53
PROVIDERS: ATTEND Obstetrics & Gynecology
DX: Z01.818 Encounter for other preprocedural examination (principal)
CPT/HCPCS: 87081

== ENCOUNTER 2018-10-05 05:53 | Inpatient (IN) | payer BC ==
[~2018-10-05] VITALS: Ht 160 cm; Wt 101.8 kg
[2018-10-05] VITALS (10 sets, daily range): BP systolic 102–138; BP diastolic 65–87
--- NOTE | 2018-10-05 05:48 | NUR ---
MARIANA ROSE Sarah presented to unit via ambulation from home, accompanied by SO, for REPEAT . MARIANA ROSE weighed, gowned, voided, and to bed. EFHM and TOCO applied, VS taken. MARIANA ROSE oriented to bed controls, call light, TV, heat, and A/C controls.
[~2018-10-05 05:53] MED LIST changes: +CITRIC ACID/SOB CIT (BICITRA) 30 ML UDC ONE; +FAMOTIDINE 20MG/2ML IV (PEPCID) ONE; +LACTATED RINGERS 1,000 ML IV ONE; +METOCLOPRAMIDE INJ 10 MG/2 ML (REGLAN) ONE; +ceFAZolin 2 GM/50 ML NS 50 ML ONE
[2018-10-05] MEDS ORDERED: LACTATED RINGERS 1,000 ML IV PRN (06:27)
[2018-10-05] MEDS ORDERED: CITRIC ACID/SOB CIT (BICITRA) 30 ML UDC PO ONE (06:30)
[2018-10-05] MEDS ORDERED: METOCLOPRAMIDE INJ 10 MG/2 ML (REGLAN) IV ONE (06:30)
[2018-10-05] MEDS ORDERED: CATHETER FLUSH 10 ML SYR IV PRN (06:30)
[2018-10-05] MEDS ORDERED: ceFAZolin 2 GM/50 ML NS 50 ML IV ONE (06:30)
[2018-10-05] MEDS ORDERED: FAMOTIDINE 20MG/2ML IV (PEPCID) IV ONE (06:30)
[2018-10-05] MEDS: LACTATED RINGERS 1,000 ML IV PRN ×2 (06:33→07:45)
[2018-10-05 06:46] LABS: BASOPHILS # (AUTO) 0.1 10^3/uL (0.0-0.1); BASOPHILS % (AUTO) 1 % (0-10); EOSINOPHILS # (AUTO) 0.1 10^3/uL (0.0-0.3); EOSINOPHILS % (AUTO) 1 % (0-10); HEMATOCRIT 38 % (35-52); HEMOGLOBIN 11.7 G/DL (11.5-16.0); LYMPHOCYTES # (AUTO) 2.5 X 10^3 (1.0-4.0); LYMPHOCYTES % (AUTO) 24 % (12-44); MEAN CORPUSCULAR HEMOGLOBIN 26 PG (25-34); MEAN CORPUSCULAR HGB CONC 31 G/DL (32-36); MEAN CORPUSCULAR VOLUME 84 FL (80-99); MEAN PLATELET VOLUME 10.7 FL (7.4-10.4); MONOCYTES % (AUTO) 10 % (0-12); NEUTROPHILS # (AUTO) 6.9 X 10^3 (1.8-7.8); NEUTROPHILS % (AUTO) 66 % (42-75); PLATELET COUNT 241 10^3/uL (130-400); WHITE BLOOD COUNT 10.5 10^3/uL (4.3-11.0)
[2018-10-05] MEDS ORDERED: fentaNYL INJECTION 100 MCG/2 ML AMP ONE (07:03)
[2018-10-05] MEDS ORDERED: ONDANSETRON 4 MG/2 ML (SDV) Z0FRAN ONE (07:03)
[2018-10-05] MEDS ORDERED: KETOROLAC 30 MG/ML VIAL ONE (07:03)
[2018-10-05] MEDS ORDERED: DEXAMETHASONE 10 MG/ML (DECADRON) 1 ML VIAL ONE (07:03)
[2018-10-05] MEDS ORDERED: OXYTOCIN/NORMAL SALINE 1,000 ML IV ONE (07:04)
[2018-10-05] MEDS ORDERED: OXYTOCIN/NORMAL SALINE 500 ML IV SCH (07:24)
--- NOTE | 2018-10-05 07:24 | History & Physical-OB ---
OB - Chief Complaint & HPI Date/Time Date of Admission: Date of Admission: October 05, 2018 at 05:53 Date seen by a Provider: October 05, 2018 Time Seen by a Provider: 07:10 Chief Complaint/History OB-Reason for Admission/Chief: Section Hx : 2 Hx Para: 1 Expected Date of Delivery: October 12, 2018 Gestational Age in Weeks: 39 Gestational Age in Days: 0 Indication for : desires repeat Admission Nurse Assessment Rev: Yes Allergies and Home Medications Allergies Coded Allergies: morphine (Verified Allergy, Mild, HIVES, 10/25/16) Penicillins (Verified Allergy, Unknown, 10/25/16) Happened as a child Home Medications [id number]/Iron Fumarate/FA/Dss 1 Each Tablet, 1 EACH PO DAILY, (Reported) Patient Home Medication List Home Medication List Reviewed: Yes OB - History Hx of Present Care: Yes Ultrasounds: Normal mid trimester US Obstetrical Complications: None Medical Complications: None Delivery History Adverse Rxn to Tranfusion: No Patient Past Medical History see above Social History/Family History HIV/AIDS: No Sexually Transmitted Disease: No Alcohol Use: Denies Use Recreational Drug Use: No Immunizations Hepatitis A: No Hepatitis B: Yes Tetanus Booster (TDap): Less than 5yrs OB - Admission Exam Physical Exam HEENT: NCAT Heart: Rhythm Normal Lungs: Clear Abdomen: Gravid Extremities: Normal Reflexes: Normal Heart Rate: 130's Accelerations: Accelerations Present Decelerations: No Decelerations Short Term Variability: Present Child Development Specialist Variability: Average (6-25) Contractions on Admission: 6-10 Minutes Apart Labs Laboratory Tests Test 10/05/18 06:30 Range/Units White Blood Count 10.5 4.3-11.0 10^3/uL Red Blood Count 4.56 4.35-5.85 10^6/uL Hemoglobin 11.7 11.5-16.0 G/DL Hematocrit 38 35-52 % Mean Corpuscular Volume 84 80-99 FL Mean Corpuscular Hemoglobin 26 25-34 PG Mean Corpuscular Hemoglobin Concent 31 L 32-36 G/DL Red Cell Distribution Width 16.0 H 10.0-14.5 % Platelet Count 241 130-400 10^3/uL Mean Platelet Volume 10.7 H 7.4-10.4 FL Neutrophils (%) (Auto) 66 42-75 % Lymphocytes (%) (Auto) 24 12-44 % Monocytes (%) (Auto) 10 0-12 % Eosinophils (%) (Auto) 1 0-10 % Basophils (%) (Auto) 1 0-10 % Neutrophils # (Auto) 6.9 1.8-7.8 X 10^3 Lymphocytes # (Auto) 2.5 1.0-4.0 X 10^3 Monocytes # (Auto) 1.0 0.0-1.0 X 10^3 Eosinophils # (Auto) 0.1 0.0-0.3 10^3/uL Basophils # (Auto) 0.1 0.0-0.1 10^3/uL OB - Assessment/Plan/Diagnosis Assessment Assessment: section Admission Dx 28 yo @39 weeks Previous c section Admission Status: Inpatient Order (span 2 midnights) Reason for Inpatient Admission: repeat c section Plan Plan: Section KELVIN BECERRA DO October 05, 2018 07:24
--- NOTE | 2018-10-05 07:29 | Discharge Inst-Women's Service ---
Discharge Inst-Women's Serv Depart Medication/Instructions New, Converted or Re-Newed RX: RX on Chart Final Diagnosis POD 2 RLTCS Consults/Follow Up Additional Follow Up: Yes Orders/Referrals Dr. Guerrier in 7-10 days and in 6 weeks Activity Activity: Activity as Tolerated Driving Instructions: No Driving for 1 Week NO SMOKING: NO SMOKING Nothing Inside Vagina: No Douching, No [place], No Tampons Diet Discharge Diet: No Restrictions Symptoms to Report to : Bleeding Excessive, Pain Increased, Fever Over 101 Degrees F, Vaginal Bleeding Increase, Questions/Concerns For Any Problems or Questions: Contact Your Physician Skin/Wound Care Infection Signs and Symptoms: Increased Redness, Foul Odor of Wound, Increased Drainage, Skin Itchy or Has a Rash, Increased Swelling, Temperature Above 101 F Operative Area Clean and Dry: Keep Incision Clean/Dry Stitches/[place]/Dermabond: Dermabond, Care of Stitches Bathing Instructions: KELVIN Kahn DO October 05, 2018 07:29
[2018-10-05] MEDS ORDERED: MEASLES,MUMPS,RUBELLA 1 EA INJ SC SCH (07:30)
[2018-10-05] MEDS ORDERED: ONDANSETRON 4 MG/2 ML (SDV) Z0FRAN IVP PRN (07:30)
[2018-10-05] MEDS ORDERED: TETANUS,DIPTH,PERTUSS P/F (BOOSTRIX) 0.5 ML VIAL IM SCH (07:30)
[2018-10-05] MEDS ORDERED: ACHD5005 PO (07:31)
[2018-10-05] MEDS ORDERED: IBUP-844 PO (07:31)
[2018-10-05] MEDS ORDERED: DOCU100C37 PO (07:31)
[2018-10-05] MEDS ORDERED: PHENYLEPHRINE 100 MCG/ML 10 ML (ANESTHESIA) SYR ONE (07:55)
[2018-10-05] MEDS ORDERED: BUPIVACAINE 0.5% 30 ML (SENSORCAINE) VIAL ONE (08:09)
--- NOTE | 2018-10-05 09:30 | NUR ---
Pericare performed and pad changed. Razia Garcia. Pt.prepared to transfer to PP room 307 via bed accompanied by staff, infant, and . Once to PP room pt. oriented to room, room service, call light, and thermostat. Ice water given and folder provided and explained. SCDs applied and turned on. IV fluids in pump. No s/s of distress noted. No questions or concerns voiced at this time. Report given to Mickey Santana RN.
--- NOTE | 2018-10-05 10:00 | NUR ---
REPORT REC'D FROM Emi ANDRADE RN
--- NOTE | 2018-10-05 11:00 | NUR ---
PRAFUL PERFORMED, PT ASSISTED TO SITTING POSITION AT EDGE OF BED. PAD AND UNDERWEAR APPLIED. PT ASSISTED TO STANDING POSITION. AMBULATES SELF TO BATHROOM ACCOMPANIED PER THIS RN WITHOUT INCIDENT. PT VOIDS APPROX 50ML BUT STATES SHE DIDN'T REALLY FEEL URGE TO GO. PRAFUL PERFORMED. PT ASSISTED TO RECLINER. NO NEEDS OR CONCERNS VOICED AT THIS TIME.
--- NOTE | 2018-10-05 13:11 | OPERATIVE REPORT ---
DATE OF SERVICE: 10/05/2018 PREOPERATIVE DIAGNOSES: 1. A 28-year-old G2, P1 at 39 weeks' gestation. 2. Previous section. POSTOPERATIVE DIAGNOSES: 1. A 28-year-old G2, P1 at 39 weeks' gestation. 2. Previous section. PROCEDURE PERFORMED: Repeat low transverse section. SURGEON: Esa Becerra DO. ANESTHESIA: Spinal. ESTIMATED BLOOD LOSS: 450 mL. URINE OUTPUT: 75 mL, clear at the end of the procedure. FLUIDS: 1500 mL lactated Ringer's solution. FINDINGS: A live female weighing 8 pounds 2 ounces, Apgars of 8 and 9. Grossly normal appearing uterus, bilateral fallopian tubes and ovaries. INDICATIONS: This is a 28-year-old female patient who had sought care in my office. There were no complications or risk factors that were encountered during her other than previous , which we planned on repeat at 39 weeks at the patient's request. Risks of the procedure were discussed with the patient in the care timeframe as well as in the preoperative area including risk of bleeding, infection, damage to surrounding structures including, but not limited to bowel, bladder, ureter, kidneys, possible postoperative complications, possible need for reoperation recovery time frame, risk from anesthesia and even . As everything was discussed with the patient in detail, consent was obtained in the preoperative area and the patient was taken to the operating room. OPERATIVE REPORT IN DETAIL: Once in the operating room, spinal anesthesia was found to be adequate. She was placed in the supine position with leftward tilt, prepped and draped in normal sterile fashion. Anesthesia is tested. A time out was performed. I then make an incision around the previously existing Pfannenstiel skin incision excising the scar using the knife. Once the scar was excised, I proceeded with taking my incision down to the fascia using Bovie cautery. The fascial incision was extended laterally using Bovie cautery. Superior aspect of the fascial incision was grasped with Nadege clamps, tented up and dissected off the underlying rectus muscles. The inferior aspect of the fascial incision was then grasped with Nadege clamps, tented up and dissected off the underlying rectus muscles. The rectus muscles were then dissected down the midline using Palma scissors, which exposed. The peritoneum was entered bluntly and extended using blunt traction. I then placed an Juanj Ose ring retractor into the peritoneal incision, which offered excellent lateral sidewall retraction, identified the lower uterine segment, which was found to be thinned out and make a low transverse incision through the vesicouterine peritoneum and bluntly dissected off the lower uterine segment. I then proceeded with my myotomy until membranes were visualized, at which point I extended the uterine incision laterally and superiorly using bandage scissors. The was found in the breech presentation. Amniotomy was performed, clear fluid was noted. With gentle fundal pressure, the infant's buttocks elevated up to the incision where it is delivered through the incision. The was delivered up to the upper torso and the legs are delivered. At that point, I delivered the arms by sweeping them across the chest and the head is then delivered by elevating the 's body and gentle flexion through the incision. The nares and oropharynx were then bulb suctioned. Infant was then brought out to the operative field where the cord was doubly clamped and cut and was handed off to the waiting nurses in attendance. Cord blood was collected. Three-vessel cord with intact placenta delivered spontaneously thereafter. IV Pitocin was initiated to facilitate uterine contraction. Uterine fundus became firmer with bimanual massage. The uterus was then exteriorized and cleared off endometrial clots and debris. I then proceeded with closing the uterine incision using #0 Vicryl suture in running locked fashion. Second layer of imbricating #0 Monocryl was placed. Excellent hemostasis was noted. After doing this, I then placed the uterus back within the pelvis and copiously irrigated the pelvis with normal saline. Once again, there was no active bleeding noted from any of my dissection planes. I placed Interceed antiadhesive over my low transverse incision. I proceeded with closing the peritoneum and using 3-0 Vicryl suture in a running fashion. The rectus muscle was reapproximated using 3-0 Vicryl suture in interrupted fashion. The fascia was reapproximated using #0 Vicryl suture in running fashion. Subcutaneous tissue was reapproximated using 3-0 plain in interrupted subcutaneous stitch and skin reapproximated using 4-0 Monocryl in subcuticular. Dermabond was applied to the incision, a sterile dressing with adhesive white tape. The patient tolerated the procedure well and was taken to recovery area in stable condition. Lap and sponge counts were correct at the end of the procedure. Instrument count was correct as well. Ancef 2 g was given preoperatively for infection prophylaxis. Job ID: [id number] DocumentID: [id number] Dictated Date: 10/05/2018 08:43:44 Infrastructure Project Manager Date: 10/05/2018 13:10:32 Dictated By: ESA BECERRA DO
--- NOTE | 2018-10-05 13:47 | Anesthesia-Regional Post-Op ---
Regional Patient Condition Mental Status: Alert, Oriented x3 Circulation: Same as Pre-Op Headache: Absent Sensation: Full Recovery Motor Block: Absent Post Op Complications Complications None Follow Up Care/Instructions Patient Instructions None needed. Anesthesia/Patient Condition Patient is doing well, no complaints, stable vital signs, no apparent adverse anesthesia problems. CAROLINE HOWE DO October 05, 2018 13:47
[2018-10-05] MEDS ORDERED: CATHETER FLUSH 10 ML SYR IV SCH (14:00)
--- NOTE | 2018-10-05 14:00 | NUR ---
PT VOIDS 400ML CLEAR, YELLOW URINE. SMALL, APPROX 1.5CM CLOT NOTED IN HAT. PT UP AMBULATING INDEPENDENTLY IN ROOM. NO S/S OF DISTRESS AND NO QUESTIONS OR CONCERNS VOICED.
[2018-10-05] MEDS: METOCLOPRAMIDE 10 MG (REGLAN) TAB PO SCH ×2 (14:26→21:17)
[2018-10-05] MEDS: KETOROLAC 30 MG/ML VIAL IV SCH ×2 (14:26→21:17)
[2018-10-05] MEDS: HYDROcodone/APAP 5 MG/325 MG (LORTAB) TAB PO PRN (18:47)
[2018-10-05] MEDS: DOCUSATE SODIUM 100 MG (COLACE) CAP PO SCH (21:16)
--- NOTE | 2018-10-05 21:37 | NUR ---
Pt up ambulating in [place].
[2018-10-06 00:12] VITALS: BP 100/59
[2018-10-06] MEDS: IBUPROFEN 600 MG (MOTRIN) TAB PO SCH ×6 (03:28→20:51)
[2018-10-06] MEDS: METOCLOPRAMIDE 10 MG (REGLAN) TAB PO SCH ×5 (03:29→20:51)
--- NOTE | 2018-10-06 03:31 | NUR ---
IV flushed and pain to site. IV d/juan and IV medication stopped and oral medication given. Dressing to abdomen removed without incidence.
[2018-10-06 03:33] VITALS: BP 105/67
[2018-10-06 05:45] LABS: BASOPHILS % (AUTO) 0 % (0-10); EOSINOPHILS % (AUTO) 0 % (0-10); HEMATOCRIT 32 % (35-52); HEMOGLOBIN 10.1 G/DL (11.5-16.0); LYMPHOCYTES # (AUTO) 3.3 X 10^3 (1.0-4.0); LYMPHOCYTES % (AUTO) 21 % (12-44); MEAN CORPUSCULAR HEMOGLOBIN 25 PG (25-34); MEAN CORPUSCULAR HGB CONC 32 G/DL (32-36); MEAN CORPUSCULAR VOLUME 81 FL (80-99); MEAN PLATELET VOLUME 10.4 FL (7.4-10.4); MONOCYTES # (AUTO) 1.7 X 10^3 (0.0-1.0); MONOCYTES % (AUTO) 11 % (0-12); NEUTROPHILS # (AUTO) 10.8 X 10^3 (1.8-7.8); NEUTROPHILS % (AUTO) 68 % (42-75); PLATELET COUNT 245 10^3/uL (130-400); RED CELL DISTRIBUTION WIDTH 15.4 % (10.0-14.5); WHITE BLOOD COUNT 15.9 10^3/uL (4.3-11.0)
--- NOTE | 2018-10-06 07:54 | NUR ---
DR. BECERRA CALLED UNIT, PLANS TO BE HERE THIS AFTERNOON, NO NEW ORDERS RECEIVED.
--- NOTE | 2018-10-06 08:09 | NUR ---
PT UP AMBULATING HALLWAYS, DENIES ANY NEEDS AT THIS TIME.
[2018-10-06] MEDS: DOCUSATE SODIUM 100 MG (COLACE) CAP PO SCH ×3 (09:06→20:51)
[2018-10-06 09:08] VITALS: BP 120/68
--- NOTE | 2018-10-06 09:10 | NUR ---
PT UP IN BATHROOM UPON THIS RN ENTERING ROOM. PT TO BED. MEDS GIVEN PO; SEE EMAR FOR FURTHER. VS OBTAINED. INITIAL SHIFT ASSESSMENT COMPLETED; SEE INTERVENTION FOR FURTHER. S/O AT THE BEDSIDE. POC DISCUSSED, PT VERBALIZES UNDERSTANDING. PT DENIES ANY NEEDS AT THIS TIME, CALL LIGHT WITHIN REACH.
--- NOTE | 2018-10-06 11:12 | NUR ---
DR. FUENTES JUST MADE ROUNDS ON . FAMILY AND VISITORS AT PT'S BEDSIDE, NO NEEDS VOICED.
--- NOTE | 2018-10-06 12:41 | Postpartum Progress Note ---
Note Note Day # 1 Subjective: Patient is without complaints. Ambulating, voiding. Tolerating a regular diet without nausea or vomiting. Normal lochia. Pain is well controlled with oral pain medications. Objective: Physical Exam: General - Alert and oriented, no apparent distress Abdomen - Soft, appropriately tender to palpation, non-distended, fundus firm at umbilicus Extremities - no edema, negative Pavan's bilaterally Incision- c/d/i Assessment: POD 1 RLTCS Acute blood loss anemia Plan: Routine care. Encourage breast feeding. Encourage ambulation. Ferrous sulfate supplementation. Plan for discharge tomorrow Vitals - Labs Vital Signs - I&O Vital Signs Date Time Temp Pulse Resp B/P (MAP) Pulse Ox O2 Delivery O2 Flow Rate FiO2 10/06/18 09:08 97.9 94 18 120/68 (85) 98 Room Air 10/06/18 03:33 97.8 81 18 105/67 (80) 97 Room Air 10/06/18 00:12 97.1 95 18 100/59 (73) 96 Room Air 10/05/18 21:32 97.1 93 18 117/65 (82) 96 Room Air 10/05/18 18:00 98.8 81 18 119/75 (90) 97 Room Air 10/05/18 14:24 98.3 80 18 130/80 (97) 100 Room Air I & O 10/06/18 07:00 Intake Total 4450 ml Output Total 3125 ml Balance 1325 ml Labs Laboratory Tests 10/06/18 05:37: White Blood Count 15.9H, Red Blood Count 3.98L, Hemoglobin 10.1L, Hematocrit 32L , Mean Corpuscular Volume 81, Mean Corpuscular Hemoglobin 25, Mean Corpuscular Hemoglobin Concent 32, Red Cell Distribution Width 15.4H, Platelet Count 245, Mean Platelet Volume 10.4, Neutrophils (%) (Auto) 68, Lymphocytes (%) (Auto) 21, Monocytes (%) (Auto) 11, Eosinophils (%) (Auto) 0, Basophils (%) (Auto) 0, Neutrophils # (Auto) 10.8H, Lymphocytes # (Auto) 3.3, Monocytes # (Auto) 1.7H, Eosinophils # (Auto) 0.0, Basophils # (Auto) 0.0 KELVIN BECERRA DO October 06, 2018 12:41
--- NOTE | 2018-10-06 12:42 | NUR ---
DR. BECERRA TO PT'S BEDSIDE.
--- NOTE | 2018-10-06 12:49 | NUR ---
PT IN BED, EATING. FAMILY AT THE BEDSIDE. NO NEEDS VOICED.
--- NOTE | 2018-10-06 14:20 | NUR ---
PT UP AMBULATING HALLWAYS WITH OTHER CHILD. NO NEEDS VOICED AT THIS TIME.
--- NOTE | 2018-10-06 15:02 | NUR ---
Vikas MAI CRNA TO PT'S BEDSIDE FOR ROUNDING.
[2018-10-06] MEDS: HYDROcodone/APAP 5 MG/325 MG (LORTAB) TAB PO PRN (15:14)
[2018-10-06 15:18] VITALS: BP 124/75
--- NOTE | 2018-10-06 15:18 | NUR ---
PT IN BED, MEDS GIVEN PO; SEE EMAR FOR FURTHER. VS OBTAINED. NO NEEDS VOICED. S/O RESTING AT THE BEDSIDE.
--- NOTE | 2018-10-06 16:59 | NUR ---
PT IN BED, VISITORS AT THE BEDSIDE, NO NEEDS VOICED.
[2018-10-06 19:49] VITALS: BP 125/74
--- NOTE | 2018-10-06 19:53 | NUR ---
Pt sitting room with family, randalk meal completed. Pt has no co at this time
--- NOTE | 2018-10-06 21:58 | NUR ---
Pt continues to have right shoulder pain, warm blanket to area and pt advised to move to a different position in bed. Pt refuses pain medication at this time.
--- NOTE | 2018-10-06 22:03 | NUR ---
Pt resting on right side with warm blanket has helped relieve some of the shoulder discomfort. Will continue to monitor.
[2018-10-07] MEDS: METOCLOPRAMIDE 10 MG (REGLAN) TAB PO SCH ×2 (03:13→09:03)
[2018-10-07] MEDS: IBUPROFEN 600 MG (MOTRIN) TAB PO SCH ×2 (03:13→09:02)
[2018-10-07 03:14] VITALS: BP 115/67
[2018-10-07] MEDS ORDERED: FERROUS SULF 325 MG (IRON) TAB PO SCH (07:00)
--- NOTE | 2018-10-07 08:05 | NUR ---
BREAKFAST TRAY DELIVERED TO ROOM PER ROOM SERVICE.
--- NOTE | 2018-10-07 08:26 | NUR ---
DR. BECERRA TO PT'S BEDSIDE.
--- NOTE | 2018-10-07 08:37 | Postpartum Progress Note ---
Note Note Day # 2 Subjective: Patient is without complaints. Ambulating, voiding. Tolerating a regular diet without nausea or vomiting. Normal lochia. Pain is well controlled with oral pain medications. Objective: Physical Exam: General - Alert and oriented, no apparent distress Abdomen - Soft, appropriately tender to palpation, non-distended, fundus firm at umbilicus Extremities - no edema, negative Pavan's bilaterally Incision- c/d/i Assessment: POD 2 RLTCS Acute blood loss anemia Plan: Routine care. Encourage breast feeding. Encourage ambulation. Ferrous sulfate supplementation. Plan for discharge today Vitals - Labs Vital Signs - I&O Vital Signs Date Time Temp Pulse Resp B/P (MAP) Pulse Ox O2 Delivery O2 Flow Rate FiO2 10/07/18 03:14 97.1 84 18 115/67 (83) 98 Room Air 10/06/18 19:49 97.0 91 18 125/74 (91) 98 Room Air 10/06/18 15:18 97.9 91 18 124/75 (91) 98 Room Air 10/06/18 09:08 97.9 94 18 120/68 (85) 98 Room Air I & O 10/07/18 07:00 Intake Total 950 ml Output Total 1400 ml Balance -450 ml KELVIN BECERRA DO October 07, 2018 8:37 am
[2018-10-07 08:58] VITALS: BP 133/79
[2018-10-07] MEDS: DOCUSATE SODIUM 100 MG (COLACE) CAP PO SCH (09:03)
--- NOTE | 2018-10-07 09:10 | NUR ---
THIS RN TO BEDSIDE. VS OBTAINED. MEDS GIVEN PO; SEE EMAR FOR FURTHER. INITIAL SHIFT ASSESSMENT COMPLETED; SEE INTERVENTION FOR FURTHER. DISCHARGE PAPERS THEN PROVIDED AND REVIEWED WITH PT, PT VERBALIZES UNDERSTANDING AND DENIES ANY QUESTIONS AT THIS TIME. PAPER SIGNED. FRESH ICE WATER PROVIDED AND PLACED AT BEDSIDE. MORE PADS PROVIDED PER REQUEST. CALL LIGHT WITHIN REACH. S/O AT THE BEDSIDE.
--- NOTE | 2018-10-07 13:00 | NUR ---
PT DISCHARGED FROM -307 TO [facility] VIA AMBULATORY IN STABLE CONDITION ACC BY Manuel CALDWELL RN.
== END 2018-10-07 13:00 | disposition home or self-care (01) | DRG 787 ==
LOC: LDRP 05:53
PROVIDERS: ADMIT Obstetrics & Gynecology; ATTEND Obstetrics & Gynecology
PROC: 10D00Z1 Extraction of Products of Conception, Low, Open Approach (ICD-10-PCS; principal; 2018-10-05 07:19)
DX: O34.211 Maternal care for low transverse scar from previous cesarean delivery (principal); O32.1XX0 Maternal care for breech presentation, not applicable or unspecified; O90.81 Anemia of the puerperium; D62 Acute posthemorrhagic anemia; Z37.0 Single live birth; Z3A.39 39 weeks gestation of pregnancy
CPT/HCPCS: 36415; 85025; 86850; 86900; 86901; 94664